=== PATIENT | female | born 1950 | race Caucasian/White ===

== ENCOUNTER 2020-08-11 08:08 | Emergency (ER) | payer OTHER ==
[~2020-08-11 08:08] MED LIST: ASPIRIN EC81 MG PO; COREG12.5 MG PO; DIOVAN HCT 3201 EACH PO; MACRODANTIN50 MG PO; PROBIOTIC1 EAC1 PO; PROTONIX 40MG T40 MG PO; VITAMIN D-32000 UNIT PO; ZOCOR40 MG PO
[2020-08-11] MEDS ORDERED: NORCO 5-325 TA1 EACH PO (10:11)
== END 2020-08-11 10:54 | disposition home or self-care (01) ==
LOC: FER 08:08
DX: S82.831A Other fracture of upper and lower end of right fibula, initial encounter for closed fracture (principal); M79.671 Pain in right foot; W19.XXXA Unspecified fall, initial encounter; Y92.009 Unspecified place in unspecified non-institutional (private) residence as the place of occurrence of the external cause
CPT/HCPCS: 73610; 73630

== ENCOUNTER 2021-09-16 07:54 | Emergency (ER) | payer OTHER ==
[~2021-09-16 07:54] MED LIST changes: +NORCO 5-325 TA1 EACH PO
[2021-09-16 09:17] LABS: EOSINOPHIL 3.8 % (0-7); HCT 39.2 % (37.0-47.0); HGB 12.9 g/dl (12.5-16.0); MCH 29.7 pg (25.0-31.0); MCHC 32.9 g/dL (32.0-36.0); MCV 90.3 fL (78.0-100.0); MONOCYTE 10.1 % (0-12); MPV 11.4 fL (6.0-9.5); NEUTROPHIL 65.8 % (41-80); NRBC 0; PLT 255 K/uL (150-400); RBC 4.34 M/uL (4.20-5.40); RDW 13.2 % (11.5-14.0); WBC 7.1 K/uL (4.0-10.5)
[2021-09-16] MEDS ORDERED: PROTONIX 40MG T40 MG PO (09:24)
[2021-09-16] MEDS ORDERED: CARAFATE1 GM PO (09:24)
[2021-09-16] MEDS ORDERED: PEPCID40 MG PO (09:24)
[2021-09-16 09:35] LABS: ALBUMIN 3.5 g/dL (3.4-5.0); BILIRUBIN - TOTAL 0.4 mg/dL (0.2-1.0); CREATININE 0.94 mg/dL (0.51-0.95); GLOBULIN (CALCULATION) 3.5 g/dL; POTASSIUM 3.8 mmol/L (3.5-5.1)
== END 2021-09-16 10:12 | disposition home or self-care (01) ==
LOC: FER 07:54
PROVIDERS: Internal Medicine
DX: K21.9 Gastro-esophageal reflux disease without esophagitis (principal); R07.89 Other chest pain; I10 Essential (primary) hypertension; J45.909 Unspecified asthma, uncomplicated; Z88.2 Allergy status to sulfonamides
CPT/HCPCS: 36415; 71045; 80053; 83690; 83880; 84145; 84484; 85025; 93005

== ENCOUNTER → 2021-11-06 | Day surgery (SDC) | payer OTHER ==
[~2021-11-06] VITALS: Ht 160 cm; Wt 84.4 kg
[~2021-11-06] MED LIST changes: +CARAFATE1 GM PO; +PEPCID40 MG PO; +VENTOLIN HFA IN18 GM INH
== END | disposition home or self-care (01) ==
LOC: FAS 06:52
DX: Z12.11 Encounter for screening for malignant neoplasm of colon (principal); K29.70 Gastritis, unspecified, without bleeding; K31.7 Polyp of stomach and duodenum; K57.30 Diverticulosis of large intestine without perforation or abscess without bleeding; K21.00 Gastro-esophageal reflux disease with esophagitis, without bleeding; K64.8 Other hemorrhoids; I12.9 Hypertensive chronic kidney disease with stage 1 through stage 4 chronic kidney disease, or unspecified chronic kidney disease; N18.2 Chronic kidney disease, stage 2 (mild); E78.5 Hyperlipidemia, unspecified; Z88.2 Allergy status to sulfonamides; Z80.0 Family history of malignant neoplasm of digestive organs; Z79.899 Other long term (current) drug therapy
CPT/HCPCS: 43239; 43251; G0105; J2704; J7120